=== PATIENT | female | born 1985 | race Caucasian/White ===

== ENCOUNTER 2016-11-17 19:23 | Emergency (ER) | payer OTHER ==
[2016-11-17] MEDS ORDERED: Sodium Chloride 0.9% 500 ML IV ONE (19:40)
[2016-11-17] MEDS ORDERED: HYDROmorphone 2 MG Tab PO PRN (19:40)
[2016-11-17] MEDS ORDERED: Ondansetron 4 MG/2 ML SDV IVPUSH ONE (19:40)
[2016-11-17] MEDS ORDERED: HYDROmorphone 1 MG/ML Syringe ONE (19:44)
--- NOTE | 2016-11-17 19:44 | EDM.PDOC ---
ED HPI GENERAL MEDICAL PROBLEM - General Chief Complaint: Lower Extremity Injury/Pain Stated Complaint: LEFT LOWER LEG PAIN Time Seen by Provider: 11/17/16 19:25 Source of Information: Reports: Patient, EMS - History of Present Illness INITIAL COMMENTS - FREE TEXT/NARRATIVE: Pt was riding a horse when she was bucked off landing on the left leg. Pt denies hitting her head, LOC, dizziness, headache or blurred vision. 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: IV/IO, Splint(s) Left Lower Leg Pain Score (Numeric/FACES): 10 - Related Data Allergies Allergy/AdvReac Type Severity Reaction Status Date / Time No Known Allergies Allergy Verified 11/17/16 19:28 Home Meds: Home Meds Aspirin 81 mg PO DAILY 11/17/16 [History] Atenolol 25 mg PO DAILY 11/17/16 [History] Hydrochlorothiazide 25 mg PO DAILY 11/17/16 [History] Past Medical History HEENT History: Reports: Allergic Rhinitis Musculoskeletal History: Reports: Back Pain, Chronic Social & Family History - Tobacco Use Smoking Status *Q: Current Some Day Smoker Years of Tobacco use: 17 Packs/Tins Daily: 0.1 Review of Systems - Review of Systems Review Of Systems: See Below Constitutional: Reports: No Symptoms Eyes: Reports: No Symptoms Respiratory: Reports: No Symptoms Cardiovascular: Reports: No Symptoms GI/Abdominal: Reports: No Symptoms Musculoskeletal: Reports: Leg Pain. Denies: Shoulder Pain, Arm Pain, Joint Swelling Skin: Reports: No Symptoms Neurological: Reports: No Symptoms ED EXAM, GENERAL - Physical Exam Exam: See Below Exam Limited By: No Limitations General Appearance: Alert, No Apparent Distress Head: Atraumatic, Normocephalic Respiratory/Chest: No Respiratory Distress, Normal Breath Sounds, No Accessory Muscle Use GI/Abdominal: Normal Bowel Sounds, Soft, No Distention Extremities: Normal Inspection, Non-Tender, Normal Capillary Refill, Leg Pain, Limited Range of Motion (left lower leg pain- bulging of skin, severe pain with any movement. ). No: Slow Capillary Refill, Joint Swelling, Increased Warmth, Mottled, Pallor, Redness Neurological: Alert, Oriented, Normal Reflexes Skin Exam: Warm, Dry Course - Vital Signs Last Recorded V/S: Last Vital Signs Temp 36.6 C 11/17/16 20:57 Pulse 103 H 11/17/16 20:57 Resp 18 11/17/16 20:57 BP 128/77 11/17/16 20:57 Pulse Ox 98 11/17/16 20:57 - Orders/Labs/Meds Orders: Active Orders 24 hr Category Date Time Status Tibia Fibula Lt [CR] Stat Exams 11/17/16 19:35 Taken HYDROmorphone [Dilaudid] Med 11/17/16 19:40 Active 2 mg PO Q3H PRN Medication Orders Hydromorphone HCl (Dilaudid) 2 mg PO Q3H PRN PRN Reason: Pain Labs: Laboratory Tests 11/17/16 11/17/16 Range/Units 20:20 20:20 WBC 14.6 H (4.0-10.0) x10^3/uL RBC 3.45 L (4.00-5.50) x10^6/uL Hgb 11.5 L (12.0-16.0) g/dL Hct 32.7 L (33.0-47.0) % MCV 94.8 H (78.0-93.0) fL MCH 33.3 H (26.0-32.0) pg MCHC 35.2 (32.0-36.0) g/dL RDW Coeff of Edward 11.9 (10.0-15.0) % Plt Count 280 (130-400) x10^3/uL Sodium 140 (136-145) mmol/L Potassium 3.0 L (3.5-5.1) mmol/L Chloride 106 (98-107) mmol/L Carbon Dioxide 23 (21-32) mmol/L BUN 15 (7-18) mg/dL Creatinine 0.8 (0.55-1.02) mg/dL Est Cr Clr Drug Dosing 93.63 mL/min Estimated GFR (MDRD) > 60 Glucose 121 H (74-106) mg/dL Calcium 7.9 L (8.5-10.1) mg/dL Corrected Calcium 8.38 L (8.5-10.1) mg/dL Total Bilirubin 0.7 (0.2-1.0) mg/dL AST 17 (15-37) U/L ALT 12 L (14-59) U/L Alkaline Phosphatase 25 L (46-116) U/L Total Protein 6.9 (6.4-8.2) g/dL Albumin 3.4 (3.4-5.0) g/dL Globulin 3.5 Albumin/Globulin Ratio 0.97 Meds: Medications Generic Name Dose Route Start Last Admin Trade Name Freq PRN Reason Stop Dose Admin Hydromorphone HCl 2 mg 11/17/16 19:40 Dilaudid PO Q3H PRN Pain Discontinued Medications Generic Name Dose Route Start Last Admin Trade Name Freq PRN Reason Stop Dose Admin Hydromorphone HCl Confirm 11/17/16 19:44 11/17/16 19:40 Dilaudid Administered 11/17/16 19:45 2 mg Dose Administration 2 mg .ROUTE .STK-MED ONE Sodium Chloride 500 mls @ 500 mls/hr 11/17/16 19:40 11/17/16 19:45 Normal Saline IV 11/17/16 20:39 500 mls/hr ONETIME ONE Administration Ondansetron HCl 4 mg 11/17/16 19:40 11/17/16 19:45 Zofran IVPUSH 11/17/16 19:41 4 mg ONETIME ONE Administration Departure - Departure Time of Disposition: 20:15 Disposition: DC/Tfer to Acute Hospital 02 Condition: Good Clinical Impression: Fibula fracture Qualifiers: Encounter type: initial encounter Fibula location: shaft Fracture type: closed Fracture morphology: comminuted Fracture alignment: displaced Laterality: left Qualified Code(s): S82.452A - Displaced comminuted fracture of shaft of left fibula, initial encounter for closed fracture Tibia fracture Qualifiers: Encounter type: initial encounter Tibia location: both condyles Fracture type: closed Fracture alignment: nondisplaced Laterality: left Qualified Code(s): S82.145A - Nondisplaced bicondylar fracture of left tibia, initial encounter for closed fracture Tibial plateau fracture Qualifiers: Encounter type: initial encounter Fracture type: closed Laterality: left Qualified Code(s): S82.142A - Displaced bicondylar fracture of left tibia, initial encounter for closed fracture - Discharge Information Instructions: Patellar Fracture, Adult Referrals: PCP,None [Primary Care Provider] - Forms: ED Department Discharge, Interfacility Transfer [id number] - My Orders Last 24 Hours: My Active Orders 11/17/16 19:35 Tibia Fibula Lt [CR] Stat 11/17/16 19:40 HYDROmorphone [Dilaudid] 2 mg PO Q3H PRN - Assessment/Plan Last 24 Hours: My Active Orders 11/17/16 19:35 Tibia Fibula Lt [CR] Stat 11/17/16 19:40 HYDROmorphone [Dilaudid] 2 mg PO Q3H PRN
[2016-11-17 20:46] LABS: CHLORIDE,CL 106 mmol/L (98-107); SODIUM,NA 140 mmol/L (136-145)
[2016-11-17 20:57] VITALS: BP 128/77
== END 2016-11-17 21:05 | disposition short-term general hospital (02) ==
LOC: VM.ED 19:23
DX: S82.452A Displaced comminuted fracture of shaft of left fibula, initial encounter for closed fracture (principal); S82.145A Nondisplaced bicondylar fracture of left tibia, initial encounter for closed fracture; S82.142A Displaced bicondylar fracture of left tibia, initial encounter for closed fracture; F17.210 Nicotine dependence, cigarettes, uncomplicated; Z79.82 Long term (current) use of aspirin; Z79.899 Other long term (current) drug therapy; V80.919A Animal-rider injured in unspecified transport accident, initial encounter
CPT/HCPCS: 36415; 73590; 80053; 85027; 96361; 96374; 96375; 99285; J1170; J2405; J7040